=== PATIENT | male | born 1955 | race Caucasian/White ===

== ENCOUNTER 2017-08-20 09:34 | Emergency (ER) | payer MEDICARE ==
[~2017-08-20 09:34] MED LIST: CLI150 PO; EZET1TAB PO; INDO50CA92 PO; LISINOPRIL; OXY10 PO; OXYC20TA77 PO; PER PO; SIMV-42 PO; WAR5 PO
[2017-08-20] MEDS ORDERED: RIVA1TAB (09:48)
[2017-08-20] MEDS ORDERED: KETOROLAC 60 MG/2 ML VIAL IM ONE (09:50)
--- NOTE | 2017-08-20 09:51 | ER Report ---
History and Physical Time Seen By MD: 09:45 Hx. of Stated Complaint: fell about 5 feet off a ladder onto left side, hit his head, states neck does not hurt. lower back hurts but not from this injury HPI/ROS CHIEF COMPLAINT: Fall HISTORY OF PRESENT ILLNESS: 8-year-old male who was climbing down a letter after cleaning his chimney on his roof got about 5 feet above the ground the ladder slipped and he fell onto his left side unsure if he hit his head he does take Subroto for a DVT patient had no loss of consciousness he has some pain to his left posterior and right posterior rib area no elbow pain but has a slight abrasion no wrist no shoulder no abdominal pain otherwise no chest pain no additional complaints noted REVIEW OF SYSTEMS: Respiratory: No cough, no dyspnea. Cardiovascular: No chest pain, no palpitations. Gastrointestinal: No vomiting, no abdominal pain. Musculoskeletal: Posterior rib left and right discomfort Remainder of the 14 system rev: Yes Allergies: Coded Allergies: No Known Drug Allergies (Verified , 08/20/17) Home Meds Active Scripts Indomethacin (INDOMETHACIN) 50 Mg Capsule, 50 MG PO TID, #15 CAPSULE one tablet 3 times a day Prov:SHERRI AUGUSTE LAB SUPPORT TECH 02/20/13 Reported Medications Rivaroxaban (Xarelto) 1 Each Tab.ds.pk 08/20/17 Indomethacin (INDOMETHACIN) 50 Mg Capsule, 50 MG PO TID, #15 CAPSULE 02/20/13 Simvastatin (Zocor) 20 Mg Tablet, 20 MG PO QHS 06/25/11 Ezetimibe/Simvastatin (Vytorin 10/10 Mg Tablet) 1 Tab Tablet, 1 TAB PO DAILY 06/25/11 Oxycodone/Acetaminophen (OXYCODONE/ACETAMINOPHEN 5MG/325 MG) 5 Mg/325 Mg Tab, 1 - 2 TAB PO Q6H Y take as needed for pain. 06/25/11 Discontinued Reported Medications Warfarin Sod (Coumadin (Or Equiv)) 5 Mg Tab, 2.5 MG PO QODAY It is very important that you take your coumadin exactly as prescribed, have blood work to monitor your PT/INR values, and follow up with your health care provider as prescribed. Diet and medication can affect the PT/INR level. Keep your diet pretty much the same day to day. Many foods contain Vitamin K which helps blood to clot and can affect the way your coumadin works. You don't need to avoid foods that have Vitamin K, but you do need to eat about the same amount of them every day. Be sure to tell your provider before changing your diet for any reason (weight loss, illness, etc.) Do not start or discontinue any medications, prescribed or over the counter, except on the advise of your provider or pharmacist. Coumadin (Warfarin) increases the risk of bleeding. 06/25/11 Warfarin Sod (Coumadin (Or Equiv)) 5 Mg Tab, 5 MG PO QODAY It is very important that you take your coumadin exactly as prescribed, have blood work to monitor your PT/INR values, and follow up with your health care provider as prescribed. Diet and medication can affect the PT/INR level. Keep your diet pretty much the same day to day. Many foods contain Vitamin K which helps blood to clot and can affect the way your coumadin works. You don't need to avoid foods that have Vitamin K, but you do need to eat about the same amount of them every day. Be sure to tell your provider before changing your diet for any reason (weight loss, illness, etc.) Do not start or discontinue any medications, prescribed or over the counter, except on the advise of your provider or pharmacist. Coumadin (Warfarin) increases the risk of bleeding. 06/25/11 Reviewed Nurses Notes: Yes Old Medical Records Reviewed: Yes Hx Smoking: No Exposure to Second Hand Smoke?: Yes Hx Substance Use Disorder: No Hx Alcohol Use: No Constitutional Vital Sign - Last 24 Hours 08/20/17 08/20/17 08/20/17 08/20/17 09:34 09:39 09:41 09:49 Temp 99.2 Pulse ??? 85 82 Resp 14 B/P (MAP) 153/99 153/99 (117) Pulse Ox 90 91 O2 Delivery Room Air 08/20/17 08/20/17 08/20/17 08/20/17 10:00 10:04 10:19 10:30 Pulse ? B/P (MAP) 135/96 (109) ???/??? (1665) 08/20/17 08/20/17 08/20/17 08/20/17 10:34 10:49 10:58 11:00 Pulse ??? 79 B/P (MAP) 124/92 (103) 125/90 (102) Pulse Ox 92 08/20/17 08/20/17 11:04 11:19 Pulse 79 79 Pulse Ox 90 91 Physical Exam General Appearance: The patient is alert, has no immediate need for airway protection and no current signs of toxicity. [ ] Eyes: Pupils equal and round no injection. Respiratory: Chest is non tender, lungs are clear to auscultation. Cardiac: regular rate and rhythm mild tenderness to palpation of the left and right posterior rib area approximately T8-T10 Gastrointestinal: Abdomen is soft and non tender, no masses, bowel sounds normal. Musculoskeletal: Neck: Neck is supple and non tender. Extremities have full range of motion and are non tender. Skin: No rashes or lesions. Small abrasion to the left elbow DIFFERENTIAL DIAGNOSIS: After history and physical exam differential diagnosis was considered for rib contusion versus fracture closed head injury versus intracranial bleed Medical Decision Making ED Course/Re-evaluation ED Course ED clinical course 8-year-old male who fell about 5 feet off a step ladder x- rays of the ribs T spine and pelvis were all negative CT of the head due to his anticoagulation also negative we'll advise him to take ibuprofen or Tylenol ice as necessary and follow up with primary care as needed Decision to Disposition Date: Aug 20, 2017 Decision to Disposition Time: 11:43 Depart Departure Latest Vital Signs Vital Signs Date Time Temp Pulse Resp B/P (MAP) Pulse Ox O2 Delivery O2 Flow Rate FiO2 08/20/17 11:19 79 91 08/20/17 11:00 125/90 (102) 08/20/17 09:39 99.2 14 Room Air Impression: Primary Impression: Fall Condition: Improved Disposition: HOME OR SELF-CARE Referrals: HOPE DELGADO APRN SENIOR [employer] DEVELOPER-C 5 Days Patient Instructions: Contusion in Adults (DC) JUVENTINO HARGROVE MD Aug 20, 2017 09:51
[2017-08-20 11:00] VITALS: BP 125/90
--- NOTE | 2017-08-20 11:13 | RADIOLOGY IMAGING REPORT ---
FACILITY: [facility] - [place] PATIENT NAME: Avtar Padron : 1955 MR: [id number] V: [id number] EXAM DATE: ORDERING PHYSICIAN: JUVENTINO HARGROVE TECHNOLOGIST: Location: [facility] - [place] Patient: Avtar Padron : 1955 Visit/Account:[id number] Date of Sevice: 08/20/2017 CT Head without contrast Indication: Trauma. Comparison: None available Technique: Axial CT images were obtained through the brain from the skull base to the vertex without administration of IV contrast. Reformatted coronal and sagittal images were also obtained. One of the following dose optimization techniques was utilized in the performance of this exam: autom ated exposure control; adjustment of the mA and/or kV according to the patient's size; or use of an i terative reconstruction technique. Specific details can be referenced in the facility's radiology CT exam operational policy. Findings: No evidence of mass, mass effect, or midline shift. No acute intracranial hemorrhage or acute territorial infarction. No extra-axial fluid collection or hydrocephalus. Encephalomalacia seen lung the insular cortex of th e right basal ganglia consistent previous ischemic event. Age-related atrophy. Periventricular white matter ischemic changes consistent small vessel disease. Stack/white matter differentiation appears no rmal. The bony structures show no fractures or lesions. The visualized paranasal sinuses and mastoid air cells are clear. IMPRESSION: 1. No acute intracranial abnormality. Senescent changes with previous ischemic event in the insular cortex of the right basal ganglia. Report Dictated By: Madi Berry at 08/20/2017 11:04 AM Report E-Signed By: Madi Berry at 08/20/2017 11:09 AM WSN:[id number]
--- NOTE | 2017-08-20 11:13 | RADIOLOGY IMAGING REPORT ---
FACILITY: [facility] PATIENT NAME: Avtar Padron : 1955 MR: [id number] V: [id number] EXAM DATE: ORDERING PHYSICIAN: JUVENTINO HARGROVE TECHNOLOGIST: Location: [facility] - [place] Patient: Avtar Padron : 1955 Visit/Account:[id number] Date of Sevice: 08/20/2017 THORACIC SPINE 2 VIEW COMPARISONS: None. ADDITIONAL PERTINENT HISTORY: Trauma FINDINGS: Vertebral body heights and alignment: Negative. Vertebral bodies: Negative. Disc spaces: Negative. Cervicothoracic junction: Negative. Surrounding soft tissues: Negative. IMPRESSION: Normal views of the thoracic spine. Report Dictated By: Luis Hi MD at 08/20/2017 11:07 AM Report E-Signed By: Luis Hi MD at 08/20/2017 11:09 AM WSN:[id number]
--- NOTE | 2017-08-20 11:14 | RADIOLOGY IMAGING REPORT ---
FACILITY: [facility] - [place] PATIENT NAME: Avtar Padron : 1955 MR: [id number] V: [id number] EXAM DATE: ORDERING PHYSICIAN: JUVENTINO HARGROVE TECHNOLOGIST: Location: [facility] - [place], [place] Patient: Avtar Padron : 1955 Visit/Account:[id number] Date of Sevice: 08/20/2017 BILATERAL RIBS COMPARISONS: None. ADDITIONAL PERTINENT HISTORY: Trauma FINDINGS: Cardiomediastinal silhouette: Negative. Pulmonary vasculature: Negative. Lung [place]: Negative. Pleural spaces: Negative. Osseous structures: Negative including dedicated views of the ribs bilaterally. Surrounding soft tissues: Negative. IMPRESSION: 1. No evidence of acute cardiopulmonary disease. 2. No evidence of rib fracture. Report Dictated By: Luis Hi MD at 08/20/2017 11:09 AM Report E-Signed By: Luis Hi MD at 08/20/2017 11:10 AM WSN:[id number]
--- NOTE | 2017-08-20 11:20 | RADIOLOGY IMAGING REPORT ---
FACILITY: [facility] - [place] PATIENT NAME: Avtar Padron : 1955 MR: [id number] V: [id number] EXAM DATE: ORDERING PHYSICIAN: JUVENTINO HARGROVE TECHNOLOGIST: Location: [facility] - [place] Patient: Avtar Padron : 1955 Visit/Account:[id number] Date of Sevice: 08/20/2017 2 VIEWS CHEST INDICATION: Trauma. COMPARISON: 06/21/2011. FINDINGS: Cardiomediastinal silhouette and pulmonary vessels within normal limits. There is no focal infiltrate or lobar consolidation. There is no pneumothorax or pleural effusion. No discrete nodule. The lateral aspect of the right upper lobe does show a faint opacity. Upper abdomen is unremarkable. No acute bony abnormality. IMPRESSION: 1. No discrete indication of acute cardiopulmonary disease. No discrete indication of thoracic trauma . 2. Faint density seen in the lateral aspect right lower lobe. This could reduction overlapping struct ures versus a parenchymal faint density such as post inflammatory change. Less likely etiologies coul d be due to early infiltrate or parenchymal nodule. Previous examination patient did show some opacit y in this area which was more prominent and this could represent post inflammatory change. However bob ggest a follow-up chest x-ray in 3 months to reevaluate this area. If this persists at that time a fo llow-up CT scan of the chest can further evaluate. Report Dictated By: Madi Berry at 08/20/2017 11:09 AM Report E-Signed By: Madi Berry at 08/20/2017 11:17 AM WSN:[id number]
--- NOTE | 2017-08-20 11:41 | RADIOLOGY IMAGING REPORT ---
FACILITY: [facility] - [place], [place] PATIENT NAME: Avtar Padron : 1955 MR: [id number] V: [id number] EXAM DATE: ORDERING PHYSICIAN: JUVENTINO HARGROVE TECHNOLOGIST: [facility] Patient: Avtar Padron : 1955 Visit/Account:[id number] Date of Sevice: 08/20/2017 PELVIS COMPARISONS: None. ADDITIONAL PERTINENT HISTORY: Trauma FINDINGS: Osseous structures: Negative. Joint spaces: Negative. Surrounding soft tissues: Negative. IMPRESSION: Normal single view of the pelvis. Report Dictated By: Luis Hi MD at 08/20/2017 11:37 AM Report E-Signed By: Luis Hi MD at 08/20/2017 11:38 AM WSN:[id number]
== END 2017-08-20 11:52 | disposition home or self-care (01) ==
LOC: ER 09:38
DX: R07.81 Pleurodynia (principal); W11.XXXA Fall on and from ladder, initial encounter
CPT/HCPCS: 70450; 71046; 71111; 72070; 72170; 96372; 99285; J1885